=== PATIENT | male | born 1950 | race Caucasian/White ===

== ENCOUNTER 2018-01-14 10:01 | Emergency (ER) | payer MEDICARE, BC ==
--- NOTE | 2018-01-14 10:24 | EDM.PDOC ---
ED HPI GENERAL MEDICAL PROBLEM - General Chief Complaint: Eye Problems Stated Complaint: R EYE VISION PROBLEMS Time Seen by Provider: 01/14/18 10:24 - History of Present Illness INITIAL COMMENTS - FREE TEXT/NARRATIVE: 67-year-old male presents emergency room vision loss. This started last night he noted The patient noted many floaters in his right eye. When he awoke this morning he almost had what he describes as many vision in the right with lots of floaters and decreased vision in the left however it was clear. Patient had cataract surgery several months back he is scheduled to follow-up with his macular degeneration physician the of this month for 3 month check. The patient denies any headache or areas of weakness or numbness elsewhere. - Related Data Allergies Allergy/AdvReac Type Severity Reaction Status Date / Time Latex, Natural Rubber Allergy Rash Verified 01/14/18 10:14 Home Meds: Home Meds Ascorbic Acid [Vitamin C] 500 mg PO DAILY 07/12/13 [History] Aspirin [Lite Coat Aspirin] 325 mg PO DAILY 07/12/13 [History] Multivitamin [Multivitamins] 1 each PO DAILY 07/12/13 [History] Valsartan [Diovan] 160 mg PO QPM 07/12/13 [History] amLODIPine Besylate/Benazepril [Amlodipine-Benazepril 5-20 MG] 1 each PO DAILY 07/12/13 [History] atorvaSTATin Calcium [Atorvastatin Calcium] 10 mg PO BEDTIME 07/12/13 [History] Past Medical History HEENT History: Reports: Macular Degeneration Cardiovascular History: Reports: Hypertension - Past Surgical History HEENT Surgical History: Reports: Cataract Surgery Social & Family History - Tobacco Use Smoking Status *Q: Former Smoker Used Tobacco, but Quit: Yes Month/Year Tobacco Last Used: 1979 ED ROS GENERAL - Review of Systems Review Of Systems: See Below Constitutional: Reports: No Symptoms HEENT: Reports: Other (Significant decreased vision). Denies: Eye Pain Respiratory: Reports: No Symptoms Cardiovascular: Reports: No Symptoms ED EXAM GENERAL W FULL EYE - Physical Exam Exam: See Below Exam Limited By: No Limitations General Appearance: Alert, No Apparent Distress Eye Exam: Bilateral Eye: Other (Difficult to do funduscopic examination just a big glare with his recent cataract surgery external exam unremarkable) Visual Acuity (R) 20/: 0 (See nurses notes) Eyelids: Bilateral: Normal Appearance Conjunctiva & Sclera: Bilateral: Normal Appearance Extraocular Movements: Bilateral: Intact Anterior Chamber: Bilateral: Normal Appearance Respiratory/Chest: No Respiratory Distress, Lungs Clear, Normal Breath Sounds Cardiovascular: Regular Rate, Rhythm, No Edema, No Murmur Neurological: Alert, Oriented, No Motor/Sensory Deficits Psychiatric: Normal Affect, Normal Mood Course - Vital Signs Last Recorded V/S: Last Vital Signs Temp 37.1 C 01/14/18 10:14 Pulse 74 01/14/18 10:14 Resp 16 01/14/18 10:14 BP 158/101 H 01/14/18 10:14 Pulse Ox 97 01/14/18 10:14 - Re-Assessments/Exams Free Text/Narrative Re-Assessment/Exam: 01/14/18 10:[address] Ocampo, the patient's retina and macular degeneration specialist who recommends having the patient follow-up with her first thing Tuesday at 7:30 Departure - Departure Time of Disposition: 10:48 Disposition: Home, Self-Care 01 Clinical Impression: Decreased visual acuity - Discharge Information Referrals: PCP,Not In Area [Primary Care Provider] - Forms: ED Department Discharge Additional Instructions: Return to emergency room if any questions or problems. Follow-up with Dr. Morales in [place] Tuesday at 7:30. Have someone other than yourself do all the driving.
== END 2018-01-14 10:58 | disposition home or self-care (01) ==
LOC: JD.ED 10:01
DX: H54.7 Unspecified visual loss (principal); I10 Essential (primary) hypertension; Z91.040 Latex allergy status; Z79.82 Long term (current) use of aspirin; Z79.899 Other long term (current) drug therapy; Z87.891 Personal history of nicotine dependence
CPT/HCPCS: 99283